=== PATIENT | female | born 1955 | race American Indian/Alaskan Native ===

== ENCOUNTER 2020-01-06 08:30 | Emergency (ER) | payer SELFPAY ==
[2020-01-06 08:49] VITALS: BP 145/88
== END 2020-01-06 11:30 | disposition left against medical advice (07) ==
LOC: ED 08:30
DX: R11.2 Nausea with vomiting, unspecified (principal); Z53.21 Procedure and treatment not carried out due to patient leaving prior to being seen by health care provider